=== PATIENT | male | born 1935 ===

== ENCOUNTER 2017-04-24 13:29 | Emergency (ER) | payer OTHER ==
[~2017-04-24] VITALS: Ht 175.3 cm; Wt 86.6 kg
[~2017-04-24 13:29] MED LIST: AZOR 5-20 MG T1 EACH; GABAPENTIN100 MG; GLIMEPIRIDE2 MG; ISOSORBIDE MONO60 MG PO; LIPITOR20 MG; METFORMIN HYDRO25 GM; PLAVIX75 MG; PRINIVIL5 MG; ZOLOFT100 MG
[2017-04-24] MEDS ORDERED: TOPROL XL25 M1 (13:47)
[2017-04-24] MEDS ORDERED: ELIQUIS5 MG (13:47)
== END 2017-04-25 11:55 | disposition home or self-care (01) ==
LOC: ER 13:29 → CPU-OBS 14:06 → ER 04-25 11:55
DX: I48.91 Unspecified atrial fibrillation (principal); R07.89 Other chest pain; R53.1 Weakness